=== PATIENT | female | born 1980 ===

== ENCOUNTER 2016-07-02 16:48 | Emergency (ER) | payer MEDICAID ==
--- NOTE | 2016-07-02 18:06 | US ---
Ultrasound biophysical profile Indication: Post dates Technique: Grayscale, color flow, and M-mode sonographic images of the single live intrauterine were obtained. Cine images were not provided. Comparison: None available Findings: There is a single live intrauterine gestation. The fetus is in cephalic position. The placenta is anterior. There is no evidence of previa. There is a low-normal amount of amniotic fluid. The SLIM measures 8.5 cm. M-mode imaging demonstrates a heart rate to be 139.0 beats per min. The study was performed for emergent evaluation and the whole anatomic survey of the fetus was not performed. Estimated weight 3945 g +/-591.8 g. movements 2/2 breathing 2/2 tone 2/2 Amniotic fluid 2/2 Total score impression: 10/29 Impression: Limited study due to gestational age. Biophysical profile of 8 out of 8. Single live intrauterine in cephalic position with a heart rate of 139.0 beats per min. Low normal SLIM measures approximately 8.5 cm.
--- NOTE | 2016-07-03 19:23 | OBADHP ---
Datetime: 07/03/2016 16:15 Dilatation, Provider: 5-6 Effacement, Provider: 50 Datetime: 07/03/2016 11:00 IP Admit Plan Other: AMA; GBS (+) Admit Comment, IP Provider: 35 yo , LMP 09/24/15, LORY 06/30/16, EGA 40w 3d referred for repeat A FI. (+) AFM; denies LOF, VB, Ctx - passed mucous plug 0800 hours. care: [facility] - noted for 1) AMA; 2) abnormal GCT 153; normal GTT P Ob: x 3: 1995, 1997, both 3.6 Kg, in [place]. 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 No h/o STIs or abnormal Pap PMH: denies PSH: denies NKDA Meds: PNV Soc Hx: denies tobacco, illicit drug or EtOH use. With FOB x 14 years Fam Hx: Mother - cause unknown. Father alive 69 - no med issues. P.E.: as above. Obese, in NAD. Awake, alert, oriented to time, person and place. Pleasant and coop erative Assessment: 35 yo P3, 40w 3d, advanced cervical dilatation. Category 1 tracing. AMA. GBS (+). Nely ent counsled on admissoin for delivery: cervical rpiening and possible pitocin augmentaiton. Patient expressed an understanding and agrees. Patient not interested in epidural. Patient is clincally stabl e. Plan: 1) Admit 2) NPO 3) IVFs 4) Continuous EM 5) Admission labs 6) Cytotec 50 mg p.o. x 1 7) Probable pitocin 8) Penicillin 9) Anticipate vaginal delivery Pelvic Type - PN: Adequate Extremities - PN: Normal Abdomen - PN: Normal Back - PN: Normal Breast - PN: Not Done Lungs - PN: Normal Heart - PN: Normal Thyroid - PN: Not Done Neurologic - PN: Normal HEENT - PN: Normal General - PN: Normal Presentation-Admit: Vertex FHR - Baseline A Provider: 150 Membranes, Provider: Intact Contraction Comments Provider: irregular Comments, ACOG Physical Exam: Skin: warm, dry, intact HEENT: full ROM Lungs: CTA bilaterally Cardiac: RRR, normal S1, S2 Abdomen: Obese. Gravid. Soft. Fundal height 38 cm : no masses or discharge Extremities: no calf tenderness, cyanosis, or edema All other systems reviewed and are negative Gestation - Est Wks by US: 40w 3d IP Hx Assessment: The History has been Reviewed and is Current IP Chief Complaint: evaluation NICHD Variability Prov Fetus A: Moderate 6-25bpm NICHD Accel Fetus A IP Provider: 15X15 FHR Category Provider Fetus A: Category I NICHD Decel Fetus A IP Provider: None Station, Provider: -3 Genitourinary Exam: Normal DTRs - PN: Not Done EGA AdmitDate IP: 40.3 IP Adm Impression: Postterm, intrauterine ; Active labor; Intact Membranes IP Admit Plan: Admit to unit; Initiate labor augmentation protocol Datetime: 07/02/2016 17:00 IP Adm Impression Other: nst reactive Vital Signs Provider: Reviewed; Within Normal Limits
--- NOTE | 2016-07-03 19:29 | OBPN ---
Datetime: 07/03/2016 18:17 IP Progress Impression: Normal progression of labor IP Progress Plan: Continue present management; Augmentation; Anticipate Vaginal Delivery Membranes, Provider: Ruptured Contraction Comments Provider: 1-2 FHR - Baseline A Provider: 140 Gestation - Est Wks by US: 40w 3d NICHD Accel Fetus A IP Provider: 15X15 FHR Category Provider Fetus A: Category I NICHD Variability Prov Fetus A: Moderate 6-25bpm Dilatation, Provider: 8 Effacement, Provider: 90 Station, Provider: 0 NICHD Decel Fetus A IP Provider: Early Datetime: 07/03/2016 16:15 IP Procedures: Artificial ROM Amniotic Fluid Color, Provider: Bloody IP Progress Note Comment: Patient reports not feeling much pain with contractions. FOB present. Stil l not interesetd in epidural, or any pain medications V.E. as above. AROM performed ; - bloody; small amount. A/P: 35 yo P3, 40w 3d, GBS (+) on penicillin, S/P cytotec p.o. x 1; now on pitocin augmentation in acitve labor. Category 1 tracing. clinically stable - continue presnet management - anticipate vaginal delivery Datetime: 07/03/2016 11:00 Presentation-Admit: Vertex Datetime: 07/02/2016 17:00 Vital Signs Provider: Reviewed; Within Normal Limits
--- NOTE | 2016-07-03 20:15 | OBDS ---
DELIVERY PERSONNEL Delivery Doctor: Alon Ni MD [place] Head: Briseyda Barcenas RN MATERNAL INFORMATION Delivery Anesthesia: Local Medications in Delivery: pitocin 20 units Estimated Blood Loss (ml): 200 Placenta Cultured: No Maternal Complications: None RN Comments: to a live baby boy with 9/9 Provider Comments: Uncomplicated vaginal delivery of live male infant, over intact perineum, VERONICA pos ition, weight 8lb 2oz; Apgars 9/9. 's mouth and nose bulb-suctioned on perineum; umbilical cord doubly clamped and infant placed on mother's abdomen. Spontaneoous delivery of placenta - grossly intact; 3 vessel cord. Cervix, vagina, perineum inspected - no laceratons noted. Patient tolerated procedure well. Hemostasis assured. LABOR SUMMARY EDC: 06/30/2016 00:00 No. Babies in Womb: 1 Attempted: No Labor Anesthesia: None LABOR INFORMATION Reason for Induction: Not Applicable Onset of Labor: 07/03/2016 08:00 Complete Dilatation: 07/03/2016 19:29 Cervical Ripening Agents: Cytotec @ (Annotations: Cytotec 50mcg PO x 1 dose) Oxytocin: Augmentation Group B Beta Strep: Positive (Annotations: 06/05/16) MEMBRANES Membranes Rupture Method: Artificial Rupture of Membranes: 07/03/2016 16:10 Length of Rupture (hrs): 3.42 Amniotic Fluid Color: Clear Amniotic Fluid Amount: Small Amniotic Fluid Odor: Normal STAGES OF LABOR Stage 1 hrs: 11 Stage 1 min: 29 Stage 2 hrs: 0 Stage 2 min: 6 Stage 3 hrs: 0 Stage 3 min: 22 Total Time in Labor hrs: 11 Total Time in Labor min: 57 VAGINAL DELIVERY Episiotomy: None Laceration Extension: N/A Laceration Type: None Laceration Repair: Not Applicable Laceration Repair Note: N/A Initial Vag Sponge Count: 10 Final Vag Sponge Count: 10 Initial Vag Sharps Count: 0 Final Vag Sharps Count: 0 Sponge Count Correct: Yes; Vaginal Sweep Performed Count Comment: Correct BABY A INFORMATION Infant Delivery Date/Time: 07/03/2016 19:35 Method of Delivery: Vaginal Born in Route : No : N/A Forceps: N/A Vacuum Extraction: N/A Shoulder Dystocia : No SHOULDER DYSTOCIA BABY A Delivery Date/Time: 07/03/2016 19:35 PRESENTATION/POSITION BABY A Presentation: Cephalic Cephalic Presentation: Vertex Vertex Position: Left Occipital Anterior Breech Presentation: N/A PLACENTA INFORMATION BABY A Placenta Delivery Time : 07/03/2016 19:57 Placenta Method of Delivery: Spontaneous Placenta Status: Delivered SCORES BABY A Heart Rate 1 min: >100 bpm Resp Effort 1 min: Good Cry Reflex Irritability 1 min: Cough or Sneeze or Pulls Away Muscle Tone 1 min: Active Motion Color 1 min: Body Muddy, Extremities Blue SCORE 1 MIN: 9 Heart Rate 5 min: >100 bpm Resp Effort 5 min: Good Cry Reflex Irritability 5 min: Cough or Sneeze or Pulls Away Muscle Tone 5 min: Active Motion Color 5 min: Body Muddy, Extremities Blue SCORE 5 MIN: 9 INFORMATION BABY A Gestational Age at Delivery: 40.3 Gestational Status: Term Infant Outcome : Liveborn Condition : Stable Sex: Male IDENTIFICATION/MEDS BABY A ID Band Number: [id number] ID Band Location: Left Leg; Left Arm Sensor Applied: Yes Sensor Number: [id number] Sensor Location : Cord Clamp WEIGHT/LENGTH BABY A Infant Birthweight (gms): 3685 Weight (lb): 8 Infant Weight (oz): 2 Infant Length Inches: 19.50 Infant Length cms: 49.5 CORD INFORMATION BABY A No. Cord Vessels: 3 Nuchal Cord : N/A Cord Blood Taken: Yes Suction: Mouth ASSESSMENT BABY A Complications: None Physical Findings at Delivery: Within Normal Limits Infant Respirations: Appears Normal Thread Drawer/ALS Called : No Infant Care By: Chuck JOHN Transferred To: Remains with Mother
--- NOTE | 2016-07-03 20:17 | OBPN ---
Datetime: 07/03/2016 18:17 Contraction Comments Provider: 2-4 IP Progress Note Comment: Patient in pain with contractions; desires nothing for pain V.E. as above. Pitocin at 6 mUnit/min Assessment: 35 yo P3, 40w 3d, near end of stage 1 of labor. GBS (+) on pecinicallin - now received 2 doses. Category 1 tracing. Clinically stable. Plan: 1) anticipate vaginal delivery
== END 2016-07-02 19:18 | disposition home or self-care (01) ==
LOC: C.EROB 16:48
DX: O48.0 Post-term pregnancy (principal); Z3A.40 40 weeks gestation of pregnancy

== ENCOUNTER 2016-07-03 10:12 | Inpatient (IN) | payer MEDICAID ==
[2016-07-03 10:24] VITALS: BMI 29.3
--- NOTE | 2016-07-03 10:47 | OBHP ---
Datetime: 07/02/2016 17:00 IP Adm Impression: Postterm, intrauterine IP Adm Impression Other: nst reactive Admit Comment, IP Provider: chief complaint-post term pregnancyl evaluation HPI 35 y/o at 40.2 wga here for nst and bpp course complicated by ama pmh denies psh denies obgyn hx ; nvdx2 social hx denies tobacco,alcohol or illicit drug use Exam see exam section A/P 35 y/o at 40.2 wga here for nst and bpp -nst reactive 7.49 pm patient s/p nst bpp 10/29 lan 8.5 patient discharged home follow up in am for repeat nst and bpp patient givend ecreased movement precautions Pelvic Type - PN: Adequate Extremities - PN: Normal Abdomen - PN: Normal Back - PN: Normal Lungs - PN: Normal Heart - PN: Normal Neurologic - PN: Normal General - PN: Normal Contraction Comments Provider: occ Gestation - Est Wks by US: 40.2 IP Hx Assessment: The History has been Reviewed and is Current Vital Signs Provider: Reviewed; Within Normal Limits IP Chief Complaint: evaluation FHR Category Provider Fetus A: Category I Genitourinary Exam: Normal DTRs - PN: Normal
[2016-07-03] MEDS ORDERED: Penicillin G 5 Million Unit Vial IVPB ONE (11:21)
[2016-07-03] MEDS ORDERED: Lactated Ringer's 1,000 ML IV SCH (11:30)
[2016-07-03 12:14] LABS: BASO % 0.2 % (0.0-2.0); EOS % 0.2 % (0.0-4.0); HEMATOCRIT 35.4 % (34.0-47.0); LYMPH # 1.5 K/uL (1.0-4.3); LYMPH % 17.4 % (20.0-40.0); MEAN CORPUSCULAR HEMOGLOBIN 28.3 pg (27.0-31.0); MEAN CORPUSCULAR HGB CONC 32.5 g/dL (33.0-37.0); MEAN PLATELET VOLUME 10.9 fL (7.2-11.7); MONO # 0.7 K/uL (0.0-0.8); MONO % 7.5 % (0.0-10.0); NRBC % 0.1 % (0.0-2.0); WHITE BLOOD COUNT 8.8 K/uL (4.8-10.8)
[2016-07-03 12:22] LABS: CHLORIDE 101 mmol/L (98-107)
[2016-07-03 12:23] LABS: POTASSIUM 3.7 mmol/L (3.6-5.2); SODIUM 134 mmol/L (132-148)
[2016-07-03 12:26] LABS: ALB/GLOB RATIO 1.1 (1.0-2.1); ALKALINE PHOSPHATASE 172 U/L (38-126); ALT/SGPT 10 U/L (9-52); AST/SGOT 20 U/L (14-36); BILIRUBIN,TOTAL 0.3 mg/dL (0.2-1.3); BLOOD UREA NITROGEN 11 mg/dL (7-17); CARBON DIOXIDE 19 mmol/L (22-30); GFR AFRICAN-AMERICAN > 60; GLUCOSE,RANDOM 101 mg/dL (65-105); TOTAL PROTEIN 6.8 g/dL (6.3-8.3)
[2016-07-03 12:27] LABS: CALCIUM 8.4 mg/dl (8.6-10.4)
[2016-07-03 12:44] LABS: RBC URINE 1095 /hpf (0-3); URINE BACTERIA OCC (<OCC); URINE BILIRUBIN NEGATIVE (NEGATIVE); URINE BLOOD 3+ (NEGATIVE); URINE COLOR Red (YELLOW); URINE GLUCOSE (UA) 2+ mg/dL (Normal); URINE KETONE TRACE mg/dL (NEGATIVE); URINE PROTEIN 2+ mg/dL (NEGATIVE); URINE UROBILINOGEN NORMAL mg/dL (0.2-1.0); WBC URINE 356 /hpf (0-5)
[2016-07-03 12:46] LABS: URINE LEUKOCYTE ESTERASE 2+ Leu/uL (Negative)
[2016-07-03] MEDS ORDERED: Oxytocin 30 UNIT 500 ML IV PRN (16:13)
[2016-07-03] MEDS ORDERED: Oxytocin 30 UNIT 500 ML IV ONE (16:14)
[2016-07-03] MEDS ORDERED: Oxycodone/Acetaminophen 5/325 mg Tab PO PRN ×2 (20:38)
[2016-07-04 07:20] LABS: BASO % 0.1 % (0.0-2.0); MEAN CORPUSCULAR HGB CONC 32.3 g/dL (33.0-37.0); MONO # 0.9 K/uL (0.0-0.8)
[2016-07-04 07:27] LABS: EOS % 0.1 % (0.0-4.0); HEMATOCRIT 30.2 % (34.0-47.0); LYMPH % 15.5 % (20.0-40.0); MEAN CORPUSCULAR HEMOGLOBIN 28.1 pg (27.0-31.0); MEAN PLATELET VOLUME 10.7 fL (7.2-11.7); MONO % 7.3 % (0.0-10.0); RED CELL DISTRIBUTION WIDTH 16.2 % (11.5-14.5); WHITE BLOOD COUNT 12.7 K/uL (4.8-10.8)
--- NOTE | 2016-07-04 10:43 | OBPPN ---
Datetime: 07/04/2016 10:35 PP Pain Prov: Within normal limits PP Nausea Prov: Denies PP Flatus Prov: No PP BM Prov: No PP Breasts Prov: Normal PP Heart Prov: Normal PP Lungs Prov: Normal PP Abdomen/Uterus Prov: Normal PP Lochia Prov: Normal PP Vulva/Perineum Prov: Normal PP CVA Tenderness Prov: Not Done PP Extremities Prov: Normal PP C/S Incision Prov: Not Applicable PP Progress Prov: Normal PP Comments Phys Exam Prov: Skin: warm, dry, intact HEENT: full ROM Breasts: no cracked nipples Lungs: CTA bilaterally Cardiac: RRR, normal S1, S2 Abdomen: Obese, Soft, Non distended. Fundus firm, mobile, non tender, 3 FB above umbilicus. Modera te lochia rubra. : no masses Extremities: no calf tenderness, cyanosis or edema All other systems reviewed and are negative. PP Impression Prov: Normal progression PP Plan Prov: Continue present management PP Progress Note Prov: Patient received in room 453, ateding to . exclusively. Denies nausea, vomiting. P.E.: as above. Mildly obese in NAD. Awake, alert, oriented to time, person and place. Pleasant an d cooerative. - PPD#1 H/H 9.7/30.2 Assessment: PPD#1, 35 yo P4, S/P . Afebrile; vital sgns stable. Anemia noted; asymptomatic and hemodynamically stable. Clinically stable. Plan: 1) Iron supplementation 2) Continue present management 3) Anticipate discharge home 07/05/16 Vital Signs Provider PP: Reviewed; Within Normal Limits
[2016-07-04] MEDS: Multiple Vitamins Tab PO SCH (17:07)
--- NOTE | 2016-07-05 08:06 | OBPPN ---
Datetime: 07/05/2016 08:04 PP Pain Prov: Within normal limits PP Nausea Prov: Denies PP Flatus Prov: Yes PP Abdomen/Uterus Prov: Normal PP Lochia Prov: Normal PP Extremities Prov: Normal PP Comments Phys Exam Prov: fudus below umblicus ext no edema,no calf ten PP Impression Prov: Normal progression PP Plan Prov: Discharge PP Progress Note Prov: pt was seen at bed side, pain under control,no n/v, tolerating deit,min lochi a, flatus+ ppd#2 s/p dc home no sex motrin prn f/u in 6weeks Vital Signs Provider PP: Reviewed; Within Normal Limits
--- NOTE | 2016-07-05 08:08 | OBDCSUM ---
Datetime: 07/02/2016 19:18 Discharge Diagnosis, Provider: Term Delivered Disch Activity Restrictions: No exercising; No lifting; No driving; Minimize walking; Minimize stair -climbing; No sexual activity; Nothing in vagina - [place], tampons, douche Discharge Comment, Provider: no sex motrin
[2016-07-05] MEDS: Multiple Vitamins Tab PO SCH (10:29)
[2016-07-05 18:18] VITALS: BP 119/79; PULSE 90; RESP 20; TEMP 97.8; O2SAT 99
== END 2016-07-05 18:20 | disposition home or self-care (01) | DRG 373 ==
LOC: C.EROB 10:12 → C.4D 10:54 → C.4M 21:15
PROVIDERS: ADMIT Obstetrics & Gynecology; ATTEND Obstetrics & Gynecology
PROC: 10E0XZZ Delivery of Products of Conception, External Approach (ICD-10-PCS; principal; 2016-07-03)
DX: O48.0 Post-term pregnancy (principal); E66.9 Obesity, unspecified; O99.02 Anemia complicating childbirth; O99.214 Obesity complicating childbirth; D64.9 Anemia, unspecified; O99.824 Streptococcus B carrier state complicating childbirth; O09.523 Supervision of elderly multigravida, third trimester; Z37.0 Single live birth; Z3A.40 40 weeks gestation of pregnancy